=== PATIENT | female | born 1970 | race Caucasian/White ===

== ENCOUNTER → 2019-11-17 01:07 | Outpatient (CLI) | payer OTHER, SELFPAY ==
--- NOTE | 2019-11-17 12:19 | DI.MAMMO_ITS ---
EXAM: MG MAMMO SCREENING CLINICAL HISTORY: SCREENING. TECHNIQUE: Full field digital CC and MLO mammographic images were obtained with 3D tomosynthesis and utilizing computer aided detection (CAD). COMPARISON: . Outside exams dated 2016 and 2018. FINDINGS: Breast Density - Category B - Scattered areas of fibroglandular density Masses/Architectural Distortion: None seen. Microcalcifications: No suspicious pleomorphic-type calcifications are seen. Skin Thickening/Nipple Retraction: None. Axilla: Unremarkable. IMPRESSION: 1. BI-RADS category 1, negative. No significant interval change with no specific features of maligna ncy noted. 2. Unless there is more urgent need, screening mammography is recommended, as per [employer] guidelines. A negative radiographic report should not delay biopsy if a dominant or clinically suspicious mass is present. Up to ten percent of cancers are not identified on mammography. A negative report may reinforce clinical impression. Adenosis and dense breasts may obscure an underlying neoplasm. False positive reports average 6 to 10%. Patient will receive a letter notifying them of these results.
== END ==
PROVIDERS: PCP Family Medicine; Visit Provider Occupational Therapist
DX: Z12.31 Encounter for screening mammogram for malignant neoplasm of breast (principal)
CPT/HCPCS: 77063; 77067

== ENCOUNTER → 2020-11-20 01:56 | Outpatient (CLI) | payer OTHER, SELFPAY ==
--- NOTE | 2020-11-20 | DI.MAMMO_ITS ---
EXAM: MG MAMMO SCREENING CLINICAL HISTORY: SCREENING, Z12.31. TECHNIQUE: Bilateral full field digital CC and MLO mammographic images were obtained with 3D tomosyn thesis and utilizing computer aided detection (CAD). COMPARISON: Prior mammograms dating back to 2015, the most recent being October 2019. Significant f amily history. Her mother was diagnosed with breast cancer at age 36. This patient has had prior br east implants 2008 and these removed at 2014 with breast reconstruction at that time. FINDINGS: There has been no significant change in the appearance and distribution of the fibroglandular tissue. There are no new spiculated masses nor malignant appearing microcalcification groups. There is no si gnificant architectural distortion nor skin thickening-retraction. IMPRESSION: No radiographic evidence of malignancy. BI-RADS Category 1 - Negative Breast Density - Category B - Scattered areas of fibroglandular density Breast density Category C or D implies that the patient has dense breast tissue. Dense breast tissue can make it harder to find cancer on a mammogram. Dense breast tissue is also associated with an incr eased risk of breast cancer. This information about the result of the mammogram report was provided to the patient to raise their awareness. Use this report when you speak with the patient about their risks for breast cancer, which includes their family history. At that time, you may recommend additional screening tests (Ultrasoun d or MRI) as these tests may add significant information. A negative radiographic report should not delay biopsy if a dominant or clinically suspicious mass is present. Up to ten percent of cancers are not identified on mammography. A negative report may reinforce clinical impression. Adenosis and dense breasts may obscure an underlying neoplasm. False positive reports average 6 to 10%. Patient will receive a letter notifying them of these results.
== END ==
PROVIDERS: PCP Nurse Practitioner Family; Visit Provider Nurse Practitioner Family
DX: Z12.31 Encounter for screening mammogram for malignant neoplasm of breast (principal); Z80.3 Family history of malignant neoplasm of breast
CPT/HCPCS: 77063; 77067

== ENCOUNTER 2020-12-28 15:45 | Outpatient (REF) | payer OTHER, SELFPAY ==
--- NOTE | 2020-12-28 14:30 | VUL_PTH ---
PATIENT: Keke Whitehead LOC: [facility] U#:[id number] AGE/SX: 50/F ROOM: RE12/28/[address]: Felicity Camarillo DO : 1970 BED: DIS: 12/28/2020 SPEC #: [id number] RECD: 12/28/20 17:52 STATUS: DEMI REQ #: [id number] MANDIE: 12/28/20 14:[address]: Felicity Camarillo DEPT: Surgical Specimen RECD BY: Whitney Baig ENTERED: 12/28/20 17:53 SP TYPE: VUL OTHR DR: Omar Zambrano Tissues: 1 - VULVA BIOPSY Procedures: GROSS AND MICRO LEVEL 4 Comments: [id number]
== END 2020-12-28 15:46 | disposition home or self-care (01) ==
LOC: LBN 15:45
PROVIDERS: PCP Nurse Practitioner Family; Visit Provider Obstetrics & Gynecology
DX: L82.1 Other seborrheic keratosis (principal)
CPT/HCPCS: 88305